=== PATIENT | male | born 1990 | race Caucasian/White ===

== ENCOUNTER 2020-11-30 17:26 | Emergency (ER) | payer MEDICAID ==
[~2020-11-30] VITALS: Ht 188 cm; Wt 81.6 kg
[2020-11-30 17:26] VITALS: BP_SYST 119
[2020-11-30] MEDS ORDERED: METOCLOPRAMIDE HCL 10 MG/2 ML VIAL IM ONE (18:15)
[2020-11-30] MEDS ORDERED: IBUP-1969 PO (19:18)
[2020-11-30 19:27] VITALS: BP_SYST 119
== END 2020-11-30 19:27 | disposition home or self-care (01) ==
LOC: SED 17:26
DX: R51.9 Headache, unspecified (principal)
CPT/HCPCS: 96372; 99283; J2765

== ENCOUNTER 2023-01-20 03:34 | Emergency (ER) | payer MEDICAID ==
[~2023-01-20] VITALS: Ht 188 cm; Wt 86.2 kg
[~2023-01-20 03:34] MED LIST: IBUP-1969 PO
[2023-01-20 03:46] VITALS: BP_SYST 141
--- NOTE | 2023-01-20 03:46 | NUR ---
Patient triaged and placed back to the waiting room. VSS. Instructed to notify ED staff for any changes in condition or worsening of symptoms while waiting to be seen by a provider. Patient verbalized understanding.
[2023-01-20 04:25] LABS: BASOPHILS % (AUTO) 0.2 % (0.0-2.0); EOSINOPHILS % (AUTO) 0.3 % (0.0-4.0); HEMATOCRIT 37.4 % (36-54); LYMPHOCYTES # (AUTO) 1.6 K/uL (1.0-5.5); LYMPHOCYTES % (AUTO) 14.8 % (20.5-51.5); MEAN CORPUSCULAR HEMOGLOBIN 27 pg (27-31); MEAN CORPUSCULAR HGB CONC 32 % (32-36); MEAN CORPUSCULAR VOLUME 83 fL (79.0-98.0); MONOCYTES # (AUTO) 0.7 K/uL (0.0-1.0); MONOCYTES % (AUTO) 6.2 % (1.7-9.3); NEUTROPHILS # (AUTO) 8.5 K/uL (1.8-7.7); NEUTROPHILS % (AUTO) 78.5 % (40.0-70.0); RED BLOOD CELL COUNT(AUTO) 4.51 MIL/uL (4.2-6.2); RED CELL DISTRIBUTION WIDTH 15.9 % (9.0-15.0); WHITE BLOOD COUNT (AUTO) 10.8 K/uL (4.8-10.8)
[2023-01-20 04:26] LABS: PLATELET COUNT (AUTO) 131 K/uL (130-430)
[2023-01-20 04:29] LABS: CALCIUM 8.5 mg/dL (8.4-11.0); CREATININE 1.06 mg/dL (0.55-1.30)
[2023-01-20 04:33] LABS: ALBUMIN 3.6 g/dL (3.4-4.8)
--- NOTE | 2023-01-20 04:52 | NUR ---
Patient placed in ER bed 3 for evaluation. Bed placed in lowest position with side rails up. Report given to Ever NAIR for continuity of care. Instructed to notify ED staff for any changes in condition or worsening of symptoms while waiting to be seen by a provider. Patient verbalized understanding.
--- NOTE | 2023-01-20 05:02 | NUR ---
ER at bedside examining patient.
[2023-01-20] MEDS ORDERED: NACL 0.9% 1,000 ML IV ONE (05:15)
[2023-01-20] MEDS ORDERED: PROCHLORPERAZINE EDISYLATE 10 MG/2 ML VIAL IVP ONE (05:15)
[2023-01-20] MEDS ORDERED: MORPHINE 4 MG INJ. 4 MG/ML VIAL IVP ONE (05:15)
--- NOTE | 2023-01-20 06:21 | NUR ---
URINE SAMPLE COLLECTED AND SENT TO LAB.
[2023-01-20 06:38] LABS: BILIRUBIN,URINE NEGATIVE (NEGATIVE); BLOOD, URINE 1+ (NEGATIVE); CLARITY/URINE SL CLOUDY (CLEAR); COLOR,URINE YELLOW (YELLOW); GLUCOSE,URINE NEGATIVE (NEGATIVE); KETONES,URINE 1+ (NEGATIVE); LEUKOCYTE ESTERASE ,URINE NEGATIVE (NEGATIVE); NITRITE, URINE NEGATIVE (NEGATIVE); PH,URINE 7.5 (5.0-8.0); PROTEIN URINE NEGATIVE (NEGATIVE)
[2023-01-20 06:45] LABS: BACTERIA,URINE None Seen /HPF (None Seen); URINE AMORPHOUS PHOSPHATES 2+ /HPF (None Seen); WBC,URINE 0-3 /HPF (0-3)
--- NOTE | 2023-01-20 07:34 | NUR ---
pt to ct
[2023-01-20] MEDS ORDERED: KETOROLAC TROMETHAMINE 30 MG VIAL IVP ONE (08:15)
--- NOTE | 2023-01-20 08:41 | NUR ---
pt reports pain had improved with morhpine but then returned 6/10 abd pain, recently medicated w toradol. vss
[2023-01-20] MEDS ORDERED: TRAM50TA2 PO (09:00)
[2023-01-20] MEDS ORDERED: IBUP-1971 PO (09:00)
--- NOTE | 2023-01-20 09:05 | NUR ---
pt denies ongoing pain at this time. no other symptoms.
[2023-01-20 09:07] VITALS: BP_SYST 144
--- NOTE | 2023-01-20 09:09 | NUR ---
Patient given written and verbal discharge instructions and verbalizes understanding. ER MD discussed with patient the results and treatment provided. Patient in stable condition. ID arm band removed. IV catheter removed intact and dressing applied, no active bleeding. Rx of ibuprofen, tramadol given. Patient educated on pain management and to follow up with PMD. Pain Scale 0/10. Opportunity for questions provided and answered. Medication side effect fact sheet provided.
== END 2023-01-20 09:09 | disposition home or self-care (01) ==
LOC: SED 03:34
DX: R10.31 Right lower quadrant pain (principal); R11.10 Vomiting, unspecified; Z79.899 Other long term (current) drug therapy
CPT/HCPCS: 99285; 74176; 96374; 96375; 96361; 80053; 81000; 83690; 85025; 36415; 76376; J1885; J0780; J2270; J7030

== ENCOUNTER 2023-10-28 08:26 | Day surgery (SDC) | payer MEDICAID, OTHER ==
[~2023-10-28] VITALS: Ht 188 cm; Wt 81.6 kg
[~2023-10-28 08:26] MED LIST changes: +IBUP-1971 PO; +TRAM50TA2 PO
[2023-10-28] MEDS ORDERED: SIMETHICONE 40 MG/0.6 ML ML ONE (10:41)
[2023-10-28] MEDS ORDERED: MEPERIDINE 100 MG INJ. 100 MG/ML VIAL ONE (10:42)
[2023-10-28] MEDS ORDERED: MIDAZOLAM HCL 5 MG/5 ML VIAL ONE (10:42)
[2023-10-28 12:58] VITALS: BP_SYST 128; PULSE 84; RESP 18; TEMP 97.5; O2SAT 100
== END 2023-10-28 12:17 | disposition home or self-care (01) ==
LOC: SDS 08:26 → SMU 08:28 → SDS 12:17
PROVIDERS: ATTEND Internal Medicine Gastroenterology
DX: K21.00 Gastro-esophageal reflux disease with esophagitis, without bleeding (principal); K29.50 Unspecified chronic gastritis without bleeding; R13.10 Dysphagia, unspecified; K25.9 Gastric ulcer, unspecified as acute or chronic, without hemorrhage or perforation; K44.9 Diaphragmatic hernia without obstruction or gangrene; Z79.899 Other long term (current) drug therapy
CPT/HCPCS: 43239; 87081; 36415; 88305; 88312; 88313; 99152; G0378; J2250; J2175